=== PATIENT | female | born 1970 | race Caucasian/White ===

== ENCOUNTER 2017-04-15 22:30 | Emergency (ER) | payer OTHER ==
[~2017-04-15] VITALS: Ht 172.7 cm; Wt 113.4 kg
[~2017-04-15 22:30] MED LIST: ACETAMINOPHEN-1 EAC1 PO; ALBUTEROL2.5 MG/31 INH; BUTALB-APAP-CA1 EACH PO; IBUPROFEN 400400 M2 PO; MEDROLDOSEPACK PO; MOBIC7.5 MG PO; PROAIR RESPICL90 MCG IH; SINGULAIR 10 MG10 M1; TYLENOL325 MG; ZPAK PO
[2017-04-15 23:03] LABS: URINE BILIRUBIN NEGATIVE (Negative); URINE BLOOD 2+ (Negative); URINE CLARITY CLEAR; URINE COLOR STRAW; URINE GLUCOSE-RANDOM NEGATIVE (Negative); URINE KETONES NEGATIVE (Negative); URINE NITRITE-REFLEX NEGATIVE (Negative); URINE PROTEIN NEGATIVE (Negative); URINE SPECIFIC GRAVITY <= 1.005 (1.005-1.030); URINE UROBILINOGEN 0.2 E.U./dl (0.2-1.0)
[2017-04-15 23:04] LABS: URINE LEUKOCYTES-REFLEX 2+ (Negative)
[2017-04-15 23:13] LABS: ABSOLUTE BASOPHILS 0.1 thou/uL (0.0-0.2); ABSOLUTE LYMPHOCYTES 1.5 thou/uL (0.8-5.3); ABSOLUTE MONOCYTES 2.2 thou/uL (0.0-1.2); ABSOLUTE NEUTROPHILS 10.1 thou/uL (1.6-8.1); BASOPHILS 0.9 %; EOSINOPHILS 0.3 %; HEMATOCRIT 38.8 % (37.0-47.0); HEMOGLOBIN 12.9 gm/dL (12.0-15.0); LYMPHOCYTES 10.5 %; MCH 28.3 pg (26.0-34.0); MCHC 33.3 g/dL (28.0-37.0); MCV 84.9 fL (80.0-100.0); MONOCYTES 15.5 %; MPV 6.5 fl. (7.2-11.1); NUCLEATED RBCS 0 /100WBC; PLATELET COUNT* 370 thou/uL (150-400); POLYS 72.8 %; RBC 4.57 mil/uL (4.20-5.00); RDW-CV 13.8 % (10.5-14.5); WBC 13.9 thou/uL (4.0-11.0)
[2017-04-15 23:13] LABS: INFLUENZA A ANTIGEN None Detected (None Detect); INFLUENZA B ANTIGEN None Detected (None Detect)
[2017-04-15 23:24] LABS: CALCIUM 8.7 mg/dL (8.5-10.1); CREATININE 0.8 mg/dL (0.6-1.3)
[2017-04-15 23:28] LABS: ALBUMIN 3.1 g/dL (3.4-5.0); TOTAL BILIRUBIN 0.6 mg/dL (<0.1-1.0); TOTAL PROTEIN 7.3 g/dL (6.4-8.2)
[2017-04-15 23:28] LABS: CASTS None Seen /LPF (None Seen); MUCUS 0-3 Light strn/LPF (None Seen); SQUAMOUS >10 Many /LPF (0-3)
[2017-04-15 23:29] LABS: CRYSTALS None Seen /LPF (None Seen); URINE RBC 3-10 Few /HPF (0-2)
[2017-04-15] MEDS ORDERED: CIPROFLOXACIN500 M1 PO (23:39)
[2017-04-15 23:49] VITALS: BP 127/97
== END 2017-04-15 23:50 | disposition home or self-care (01) ==
LOC: M.ERS 22:30
PROVIDERS: Physician Assistant
DX: N39.0 Urinary tract infection, site not specified (principal); B34.9 Viral infection, unspecified; I10 Essential (primary) hypertension; J45.909 Unspecified asthma, uncomplicated; F17.200 Nicotine dependence, unspecified, uncomplicated; Z90.49 Acquired absence of other specified parts of digestive tract; Z88.1 Allergy status to other antibiotic agents

== ENCOUNTER 2017-04-17 13:33 | Emergency (ER) | payer OTHER ==
[~2017-04-17] VITALS: Ht 172.7 cm; Wt 113.4 kg
[~2017-04-17 13:33] MED LIST changes: +CIPROFLOXACIN500 M1 PO
[2017-04-17 13:44] VITALS: BP 147/91
[2017-04-17] MEDS ORDERED: BACTRIM DS TAB1 EACH PO (14:28)
[2017-04-17] MEDS ORDERED: ZOFRAN4 MG PO (14:31)
[2017-04-17] MEDS ORDERED: CIPRO500 MG PO (14:41)
== END 2017-04-17 14:43 | disposition home or self-care (01) ==
LOC: M.ERS 13:33
DX: N39.0 Urinary tract infection, site not specified (principal); R31.9 Hematuria, unspecified; I10 Essential (primary) hypertension; J45.909 Unspecified asthma, uncomplicated; F10.99 Alcohol use, unspecified with unspecified alcohol-induced disorder; Z98.890 Other specified postprocedural states; Z88.0 Allergy status to penicillin; Z88.1 Allergy status to other antibiotic agents

== ENCOUNTER 2020-03-26 07:13 | Emergency (ER) | payer OTHER ==
[~2020-03-26] VITALS: Ht 172.7 cm; Wt 113.4 kg
[~2020-03-26 07:13] MED LIST changes: +BACTRIM DS TAB1 EACH PO; +CIPRO500 MG PO; +ZOFRAN4 MG PO
[2020-03-26] MEDS ORDERED: ASA81BEC PO (07:24)
[2020-03-26] MEDS ORDERED: LIPITOR 10 MG10 M1 PO (07:24)
[2020-03-26] MEDS ORDERED: WELLBUTRIN SR150 MG PO (07:24)
[2020-03-26] MEDS ORDERED: PROBIOTIC1 EAC7 PO (07:25)
[2020-03-26] MEDS ORDERED: SUPER THERAVIT1 EACH PO (07:25)
[2020-03-26] MEDS ORDERED: DOXYCYCLINE 10100 M2 PO (07:53)
[2020-03-26 07:59] VITALS: BP 125/86
== END 2020-03-26 08:14 | disposition home or self-care (01) ==
LOC: M.ERS 07:13
DX: J32.9 Chronic sinusitis, unspecified (principal); I10 Essential (primary) hypertension; J45.909 Unspecified asthma, uncomplicated; Z79.82 Long term (current) use of aspirin; Z79.899 Other long term (current) drug therapy; Z88.0 Allergy status to penicillin; Z88.1 Allergy status to other antibiotic agents